=== PATIENT | female | born 1995 | race Caucasian/White ===

== ENCOUNTER 2018-08-19 01:17 | Emergency (ER) | payer BC ==
[~2018-08-19] VITALS: Ht 160 cm; Wt 49.1 kg
[2018-08-19 01:50] LABS: CLARITY,URINE SLIGHTLY CLOUDY (Clear); COLOR,URINE YELLOW (Yellow); GLUCOSE, URINE NEGATIVE (Neg); KETONES,URINE NEGATIVE (Neg); LEUKOCYTE ESTERASE ,URINE MODERATE (Neg); NITRITES, URINE NEGATIVE (Neg); OCCULT BLOOD,URINE SMALL (Neg); PROTEIN,URINE TRACE mg/dl (Neg); UROBILINOGEN,URINE 0.2 E.U/dL (0.2-1.0)
[2018-08-19] MEDS ORDERED: ketorolac trometh inj. 60 MG/2 ML VIAL IM ONE (01:50)
[2018-08-19] MEDS ORDERED: ondansetron 4mg rapidly disintigrating tab PO ONE (01:50)
[2018-08-19 01:52] LABS: URINE HCG NEGATIVE (NEG)
[2018-08-19 01:58] LABS: BACTERIA,URINE 2+ /HPF (Neg); UA COLLECTION TYPE CLN CATCH MIDSTREAM; WBC,URINE 30-50 /HPF (0-4)
[2018-08-19 01:59] LABS: SQUAMOUS EPITHELIAL CELL,UR FEW /LPF (FEW)
[2018-08-19] MEDS ORDERED: CefTRIAXone 2gm/D5W 50ml 50 ML IV ONE (02:05)
[2018-08-19] MEDS ORDERED: proCHLORperazine 10 MG/2 ml inj IV ONE (02:40)
[2018-08-19 02:42] LABS: BASOPHILS % (AUTO) 0.4 % (0-1); EOSINOPHILS # (AUTO) 0.3 X10'3 (0-0.9); EOSINOPHILS % (AUTO) 2.9 % (0-6); HEMATOCRIT 41.6 % (35.0-45.0); HEMOGLOBIN 13.8 g/dl (12.0-16.0); MEAN CORPUSCULAR HEMOGLOBIN 28.3 PG (27.0-31.0); MEAN CORPUSCULAR HGB CONC 33.1 % (33.0-36.5); MEAN CORPUSCULAR VOLUME 85.5 FL (78-98); MEAN PLATELET VOLUME 7.1 FL (7.4-10.4); MONOCYTES # (AUTO) 0.8 X10'3 (0-0.9); MONOCYTES % (AUTO) 7.6 % (2-12); NEUTROPHILS # (AUTO) 6.6 X10'3 (1.8-7.7); NEUTROPHILS % (AUTO) 61.1 % (42-75); PLATELET COUNT 342 X10'3 (140-440); RED BLOOD COUNT 4.87 X10'6 (4.20-5.60); RED CELL DISTRIBUTION WIDTH 13.9 % (11.5-14.5); WHITE BLOOD COUNT 10.8 X10'3 (4.5-11.0)
[2018-08-19 02:45] LABS: ALANINE AMINOTRANSFERASE 33 U/L (12-78); ALBUMIN 4.2 G/DL (3.4-5.0); ALBUMIN/GLOBULIN RATIO 1.1 (1.1-1.5); ALKALINE PHOSPHATASE 78 IU/L (46-116); ANION GAP 8 (8-16); ASPARTATE AMINO TRANSFERASE 20 U/L (10-37); BILIRUBIN,TOTAL 0.4 MG/DL (0.1-1.0); BLOOD UREA NITROGEN 13 MG/DL (7-18); BUN/CREATININE RATIO 19.4 (6.6-38.0); CALCIUM 9.1 MG/DL (8.5-10.1); CHLORIDE 102 MMOL/L (99-107); CREATININE 0.67 MG/DL (0.40-0.90); GLUCOSE 95 MG/DL (70-104); POTASSIUM 3.6 MMOL/L (3.5-5.1); SODIUM 138 MMOL/L (135-145); TOTAL CARBON DIOXIDE 28.4 MMOL/L (24-32); TOTAL PROTEIN 8.1 G/DL (6.4-8.2); eGFR > 90 ML/MIN
[2018-08-19 03:29] VITALS: BP 104/61
[2018-08-19] MEDS ORDERED: CIPR-259 PO (03:36)
== END 2018-08-19 03:49 | disposition home or self-care (01) ==
LOC: ER 01:18
DX: N10 Acute pyelonephritis (principal); Z88.2 Allergy status to sulfonamides
CPT/HCPCS: 36415; 74176; 80053; 81001; 81025; 84145; 85025; 87077; 87088; 87186; 96365; 96372; 96375; 99285; J0696; J0780; J1885; P9612